=== PATIENT | male | born 1945 ===

== ENCOUNTER → 2020-09-28 | Outpatient (CLI) | payer OTHER ==
[~2020-09-28] VITALS: Ht 182.9 cm; Wt 95.3 kg
[~2020-09-28] MED LIST: ADVIL200 M3 PO; DUTASTERIDE0.5 MG PO; HYDROMORPHONE PO; LIPITOR 20 MG T20 M1 PO; TIZANIDINE HCL4 M1 PO
[2020-09-28 14:36] VITALS: BP 132/82
--- NOTE | 2020-09-28 15:11 | NUR ---
[facility] Assessment: 1. History of Osteoarthritis: neck back History of Rheumatoid Arthritis: n/a 2. Height: 6 ft. 0 in. 182.9 cm. Weight: 210.0 lb. oz. 95.256 kg. Patient's BMI: 28.5 3. Vital Signs: BP: 132/82 Pulse: 65 Resp: 20 Temp: 02 Sat: 94 ECG Mon: 4. Pain Intensity: 3 5. Fall Risk: Dizziness: N Needs help standing or walking: N Fallen in the last 3 months: N Fall risk comments: 6. Patient on Blood Thinner: None 7. History of Hypertension: N 8. Opioid Therapy greater than 6 weeks: Y Opiate Contract Signed: 9. Risk Assessment Tool Provided: 7-mod risk 10. Functional Assessment Tool: 11. Recreational Drug Use: Never Drug Type: Tobacco Use: Never Smoker Tobacco Type: Amount or Packs/day: How Many Years: Alcohol Use: Unknown Frequency: Weekly Quant: 1/week
== END ==
LOC: PAIN 09-14 06:52
PROVIDERS: ATTEND Anesthesiology Pain Medicine
DX: M48.05 Spinal stenosis, thoracolumbar region (principal); G89.29 Other chronic pain; Z88.8 Allergy status to other drugs, medicaments and biological substances; Z79.899 Other long term (current) drug therapy